=== PATIENT | female | born 1945 ===

== ENCOUNTER 2025-01-19 11:31 | Inpatient (IN) | payer OTHER ==
[~2025-01-19] VITALS: Ht 165.1 cm; Wt 79.4 kg
[2025-01-19] MEDS ORDERED: FLUTICASONE PR50 MCG NAS (12:08)
[2025-01-19] MEDS ORDERED: HYDROXYZINE HCL25 MG PO (12:09)
[2025-01-19] MEDS ORDERED: LOPERAMIDE HCL2 MG PO (12:10)
[2025-01-19] MEDS ORDERED: MELATONIN5 M1 PO (12:12)
[2025-01-19] MEDS ORDERED: METFORMIN HYDR500 MG PO (12:13)
[2025-01-19] MEDS ORDERED: MIRTAZAPINE7.5 MG PO (12:15)
[2025-01-19] MEDS ORDERED: LOPRESSOR50 M1 PO (12:15)
[2025-01-19] MEDS ORDERED: OLANZAPINE2.5 MG PO (12:17)
[2025-01-19] MEDS ORDERED: ROSUVASTATIN CAL5 MG PO (12:17)
[2025-01-19] MEDS ORDERED: SENNA8.6 MG PO (12:18)
[2025-01-19] MEDS ORDERED: MULTIPLE VITAM1 EAC1 PO (12:19)
[2025-01-19] MEDS ORDERED: TRAZODONE50 MG PO (12:20)
[2025-01-19] MEDS ORDERED: KENALOG 0.1%80 GM T (12:21)
[2025-01-19] MEDS ORDERED: XANAX0.25 MG PO (12:22)
[2025-01-19] MEDS ORDERED: TYLENOL EXTRA500 M2 PO (12:22)
[2025-01-19] MEDS ORDERED: ZYRTEC10 M2 PO (12:23)
[2025-01-19] MEDS ORDERED: hydrOXYzine hydrochloride 50 MG/ML VIAL IM PRN (12:30)
[2025-01-19] MEDS ORDERED: LORazepam 0.5 MG TAB PO PRN (12:35)
[2025-01-19] MEDS ORDERED: DIVALPROEX (DR) 250 MG TAB PO SCH (13:00)
[2025-01-19] MEDS ORDERED: ALPRAZolam 0.25 MG TAB PO SCH (13:00)
[2025-01-19] MEDS ORDERED: BUDESONIDE 0.5 MG AMP NEB SCH (16:37)
[2025-01-19] MEDS ORDERED: Rivastigmine Tartrate 4.6 MG/24 HR PATCH T SCH (16:45)
[2025-01-19 17:35] LABS: BILIRUBIN Negative (Negative); BLOOD 2+ (Negative); CLARITY Cloudy (Clear); COLOR Yellow (Yellow); GLUCOSE Negative (Negative); KETONE Negative (Negative); LEUKO ESTERASE 2+ (Negative); NITRITE Positive (Negative); SPECIFIC GRAVITY 1.015 (1.001-1.030); UROBILINOGEN 0.2 E.U./dl (0.0-1.0)
[2025-01-19] MEDS ORDERED: ACETAMINOPHEN 325 MG TAB PO PRN (17:35)
[2025-01-19] MEDS ORDERED: Magnesium Hydroxide 30 ML UDC PO PRN (17:35)
[2025-01-19] MEDS ORDERED: MG-AL HYDROXIDE/SIMETICONE 30 ML UDC PO PRN (17:35)
[2025-01-19] MEDS ORDERED: Menthol/Zinc Oxide 4 GM THIN T PRN (17:40)
[2025-01-19 17:44] LABS: BACTERIA 3+; WBC 41-50 wbc/hpf (0-5)
[2025-01-19 20:00] VITALS: BP 125/71
[2025-01-19] MEDS ORDERED: Doxycycline Hyclate 100 MG CAP PO SCH (21:00)
[2025-01-19] MEDS ORDERED: Mirtazapine 15 MG TAB PO SCH (21:00)
[2025-01-19] MEDS ORDERED: Ciprofloxacin Hydrochloride 250 MG TAB PO SCH (21:00)
[2025-01-19] MEDS ORDERED: Memantine Hydrochloride 5 MG TAB PO SCH (21:00)
[2025-01-20 06:47] LABS: BASO # 0.1 10*3/uL (0.0-0.1); BASO % 0.7 % (0.0-1.0); EOS # 0.2 10*3/uL (0.0-0.4); EOS % 2.2 % (1.0-4.0); HEMATOCRIT 39.5 % (37.0-47.0); MEAN CELL VOLUME 94.7 fl (81.0-99.0); MEAN CORPUSCULAR HGB 31.7 pg (27.0-31.0); MEAN CORPUSCULAR HGB CONC 33.4 g/dl (33.0-37.0); MEAN PLATELET VOLUME 9.6 fl (9.6-12.3); MONO # 0.9 10*3/uL (0.1-1.0); MONO % 9.6 % (3.0-9.0); NEUT # 5.1 10*3/uL (2.3-7.9); NEUT % 57.1 % (47.0-73.0); PLATELET COUNT AUTOMATED 258 10*3/uL (130-400); RED BLOOD COUNT 4.17 10*6/uL (4.10-5.10); RED CELL DISTRI WIDTH 12.6 % (0-14.5); WHITE BLOOD COUNT 8.9 10*3/uL (4.8-10.8)
[2025-01-20 07:50] LABS: ALKALINE PHOSPHATASE 85 U/L (46-116); BUN 13 mg/dl (9-23); CHLORIDE 104 mmol/L (98-107); CHOLESTEROL 112 mg/dL (<200); FREE T4 1.07 ng/dl (0.89-1.76); LDL CHOLESTEROL 35 mg/dL (9-159); POTASSIUM 4.4 mmol/L (3.4-5.1); SGPT/ALT 25 U/L (5-49); TOTAL PROTEIN 6.7 gm/dL (6.0-8.0); TRIGLYCERIDES 114 mg/dl (<150)
[2025-01-20 08:31] VITALS: BP 155/89
[2025-01-20] MEDS ORDERED: MULTIVITAMIN 1 TAB TAB PO SCH (09:00)
[2025-01-20] MEDS ORDERED: ATORVASTATIN CALCIUM 20 MG TAB PO SCH (09:00)
[2025-01-20] MEDS ORDERED: Cetirizine Hydrochloride 10 MG TAB PO SCH (09:00)
[2025-01-20] MEDS ORDERED: metFORMIN Hydrochloride 500 MG TAB PO SCH (09:00)
[2025-01-20] MEDS ORDERED: Metoprolol Tartrate 50 MG TAB PO SCH (09:00)
[2025-01-20 20:00] VITALS: BP 148/70
[2025-01-20] MEDS ORDERED: Memantine Hydrochloride 5 MG TAB PO SCH (21:00)
[2025-01-21 07:27] VITALS: BP 135/80
[2025-01-21] MEDS ORDERED: BUDESONIDE 0.5 MG AMP NEB PRN (08:25)
[2025-01-21 20:00] VITALS: BP 120/75
[2025-01-21] MEDS ORDERED: CEFDINIR 300 MG CAP PO SCH (21:00)
[2025-01-21] MEDS ORDERED: NYSTATIN 15 GM BOT T SCH (21:00)
[2025-01-22 08:02] VITALS: BP 122/70
[2025-01-22] MEDS ORDERED: Rivastigmine Tartrate 9.5 MG/24 HR PATCH T SCH (09:00)
[2025-01-22 20:00] VITALS: BP 141/82
[2025-01-22] MEDS ORDERED: CEFDINIR 300 MG CAP PO SCH (21:00)
[2025-01-22] MEDS ORDERED: ALPRAZolam 0.25 MG TAB PO SCH (21:00)
[2025-01-22] MEDS ORDERED: Memantine Hydrochloride 10 MG TAB PO SCH (21:00)
[2025-01-23 08:00] VITALS: BP 142/81
[2025-01-23] MEDS ORDERED: ALPRAZolam 0.25 MG TAB PO SCH (13:00)
[2025-01-23 20:00] VITALS: BP 137/65
[2025-01-23] MEDS ORDERED: clonAZEPAM 0.5 MG TAB PO SCH (21:00)
[2025-01-24 08:00] VITALS: BP 137/65
[2025-01-24 20:00] VITALS: BP 120/64
[2025-01-25 08:00] VITALS: BP 118/56
[2025-01-25] MEDS ORDERED: MEMANTINE HCL10 MG PO (10:23)
[2025-01-25] MEDS ORDERED: CLONAZEPAM0.5 M2 PO (10:23)
[2025-01-25] MEDS ORDERED: DIVALPROEX SOD250 MG PO (10:23)
[2025-01-25] MEDS ORDERED: MIRTAZAPINE15 M2 PO (10:23)
[2025-01-25] MEDS ORDERED: RIVASTIGMINE1 EAC1 T (10:23)
== END 2025-01-25 18:20 | DRG 883 ==
LOC: 3N 11:31
PROVIDERS: ADMIT Psychiatry & Neurology Psychiatry; ATTEND Psychiatry & Neurology Psychiatry
PROC: GZHZZZZ Group Psychotherapy (ICD-10-PCS; principal; 2025-01-19)
PROC: GZ51ZZZ Individual Psychotherapy, Behavioral (ICD-10-PCS; 2025-01-19)
DX: F63.81 Intermittent explosive disorder (principal); E11.65 Type 2 diabetes mellitus with hyperglycemia; N30.01 Acute cystitis with hematuria; F02.A18 Dementia in other diseases classified elsewhere, mild, with other behavioral disturbance; F33.9 Major depressive disorder, recurrent, unspecified; F41.9 Anxiety disorder, unspecified; I10 Essential (primary) hypertension; E78.5 Hyperlipidemia, unspecified; G30.9 Alzheimer's disease, unspecified; Z83.3 Family history of diabetes mellitus; Z88.8 Allergy status to other drugs, medicaments and biological substances; Z79.899 Other long term (current) drug therapy